=== PATIENT | female | born 2000 | race Caucasian/White ===

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

== ENCOUNTER 2019-03-28 00:14 | Emergency (ER) | payer OTHER ==
--- NOTE | 2019-03-28 02:24 | ED ---
Lower Extremity - HPI Summary HPI Summary: This pt is a 18 Y/O F presenting to [facility] with a CC of L ankle pain that started [facility] to [facility] [place] and is currently rated an 8/10 in severity. She states that she did not sleep well 03/26/19 and was overly tired 03/27/19 when she tripped over a curb. She states that she continued to walk on it for the rest of the day. When she tried walking again at 0026 she states that she was unable to put weight on her foot. She arrived to the hospital carried by her friends. She states that her L foot is swollen and discolored. She has decreased ROM and increased pain with movement. She states that elevating and resting her ankle helps with the pain. She has no pertinent PMHx. - History of Current Complaint Chief Complaint: EDExtremityLower Stated Complaint: LEFT FOOT PAIN PER PT Hx Obtained From: Patient Mechanism Of Injury: Other - Pt stated that she tripped over a curb Onset of Pain: Hours - 2, Post Accident Onset/Duration: Still Present - 2 Severity Initially: Severe Severity Currently: Severe Pain Intensity: 8 Pain Scale Used: 0-10 Numeric Timing: Constant Location: Is Diffuse - L foot Associated Signs And Symptoms: Positive: Negative - chills, N/V, and abdominal pain, Bruising, Other - L foot pain. Negative: Fever Aggravating Factor(s): Movement, Weight Bearing Alleviating Factor(s): Rest, Elevation Able to Bear Weight: No - Allergies/Home Medications Allergies/Adverse Reactions: Allergies Allergy/AdvReac Type Severity Reaction Status Date / Time No Known Allergies Allergy Verified 06/04/17 10:02 PMH/Surg Hx/FS Hx/Imm Hx Previously Healthy: Yes Endocrine/Hematology History: Denies: Hx Diabetes Cardiovascular History: Denies: Hx Hypertension Respiratory History: Reports: Hx Asthma Neurological History: Reports: Hx Migraine Infectious Disease History: No Infectious Disease History: Denies: Traveled Outside the [place] in Last 30 Days - Family History Known Family History: Positive: Cardiac Disease - Social History Occupation: Student - [employer] Lives: Dormitory/Roommates Alcohol Use: None Hx Substance Use: No Substance Use Type: Reports: None Hx Tobacco Use: No Smoking Status (MU): Never Smoked Tobacco Review of Systems Negative: Fever, Chills Negative: Abdominal Pain, Vomiting, Nausea Positive: Decreased ROM - L foot and ankle, Other - L foot pain Skin: Other - discolored at L foot All Other Systems Reviewed And Are Negative: Yes Physical Exam - Summary Physical Exam Summary: General: Well-developed, Well-nourished female. No acute distress. HEENT: Normocephalic, Atraumatic. Eyes: Conjuctiva normal, PERRL. Ears: TMs within normal limits. Nares: (-) discharge, (-) erythema. Oropharynx: Clear, mucous membranes moist, (-) exudates. Neck: Soft, FROM, (-) lymphadenopathy, (-) thyromegaly, (-) JVD. Cardiovascular: Normal sinus rhythm, (-) murmur. Lungs: Clear to auscultation bilaterally (-) wheezes, (-) rales, (-) rhonchi. Abdomen: Soft, non-tender, non-distended, (-) organomegaly, normal bowel sounds. Back: (-) CVA tenderness Extremities: No edema. Good cap refill, pulses. No obvious swelling or deformity , L foot is tender. Decreased range of motion in L foot secondary to pain. Skin: Warm, dry, (-) rash. Temp is normal Neuro: Alert and oriented x3, no focal deficits. Psychiatric: Mood normal, affect normal. Triage Information Reviewed: Yes Vital Signs On Initial Exam: Initial Vitals Temp Pulse Resp BP Pulse Ox 99.1 F 61 18 93/61 100 03/28/19 00:25 03/28/19 00:25 03/28/19 00:25 03/28/19 00:25 03/28/19 00:25 Vital Signs Reviewed: Yes Diagnostics - Vital Signs Vital Signs Temp Pulse Resp BP Pulse Ox 03/28/19 00:25 99.1 F 61 18 93/61 100 - Laboratory Lab Statement: Any lab studies that have been ordered have been reviewed, and results considered in the medical decision making process. - Radiology L ankle Radiology Interpretation Completed By: ED Physician Summary of Radiographic Findings: No acute processes, including fractures or breaks. Pending offical review. Lower Extremity Course/Dx - Course Course Of Treatment: This pt is a 18 Y/O F presenting to [facility] with a CC of L ankle pain that started [facility] [facility] to [facility] [place] and is currently rated an 8/10 in severity. She states that she did not sleep well 03/26/19 and was overly tired 03/27/19 when she tripped over a curb. She states that she continued to walk on it for the rest of the day. When she tried walking again at 0026 she states that she was unable to put weight on her foot. Her PE found that she had Good cap refill, pulses. No obvious swelling or deformity, L foot is tender. Decreased range of motion in L foot secondary to pain, and she had a normal temperature. Her Ankle X-Ray found no acute injuries, including fractures or breaks. She will be discahrged home with a Dx of L ankle sprain. She will be given instructions to rest, elevate, ice, weight bearing as tolerated, Ibuprofen 2 tabs 3 times a day as needed with food. Use the crutches as shown. - Diagnoses Provider Diagnoses: Left ankle sprain Discharge ED - Sign-Out/Discharge Documenting (check all that apply): Patient Departure - discharge Patient Received Moderate/Deep Sedation with Procedure: No - Discharge Plan Condition: Stable Disposition: HOME Patient Education Materials: Ankle Sprain (ED), Crutch Instructions (ED), R.I.C.E. Treatment (ED) Referrals: [facility] - Hector WANG [Primary Care Provider] - 2 Days Additional Instructions: PLEASE FOLLOW UP WITH YOUR PRIMARY CARE PROVIDER IN 2-3 DAYS AND RETURN TO THE EMERGENCY DEPARTMENT FOR ANY NEW OR WORSENING SYMPTOMS. - Billing Disposition and Condition Condition: STABLE Disposition: Home - Attestation Statements Document Initiated by Verónica: Yes Documenting Scribe: Scooter Biswas Provider For Whom Verónica is Documenting (Include Credential): Sasha Vega MD Scribe Attestation: Scooter Rivera, scribed for Sasha Vega MD on 03/28/19 at 0509. Scribe Documentation Reviewed: Yes Provider Attestation: The documentation as recorded by the Scooter spears accurately reflects the service I personally performed and the decisions made by me, Sasha Vega MD Status of Scribe Document: Viewed
[2019-03-28 02:59] VITALS: BP 0/0
== END 2019-03-28 02:55 | disposition home or self-care (01) ==
LOC: ED 00:14
DX: S93.402A Sprain of unspecified ligament of left ankle, initial encounter (principal); W18.49XA Other slipping, tripping and stumbling without falling, initial encounter; Y92.9 Unspecified place or not applicable; J45.909 Unspecified asthma, uncomplicated; G43.909 Migraine, unspecified, not intractable, without status migrainosus
CPT/HCPCS: 99282

== ENCOUNTER 2019-05-29 14:56 | Emergency (ER) | payer OTHER, BC ==
[2019-05-29] MEDS ORDERED: Acetaminophen TAB* 325 MG PO ONE (15:07)
[2019-05-29 15:50] LABS: Influenza A Molecular NEGATIVE (Negative); Influenza B Molecular NEGATIVE (Negative)
[2019-05-29] MEDS ORDERED: Ondansetron INJ* 2 MG/ML VIAL IV ONE (16:27)
[2019-05-29 16:54] LABS: Urine Appearance Clear; Urine Bacteria Absent (Absent); Urine Bilirubin Negative (Negative); Urine Blood 2+ (Negative); Urine Color Yellow; Urine Glucose Negative (Negative); Urine Ketones Negative (Negative); Urine Nitrite Positive (Negative); Urine Protein Negative (Negative); Urine Red Blood Cell 2+(6-10/hpf) (Absent); Urine Specific Gravity 1.012 (1.010-1.030); Urine Squamous Epithelial Cell Present (Absent); Urine Urobilinogen Negative (Negative); Urine White Blood Cell 3+(>20/hpf) (Absent)
--- NOTE | 2019-05-29 16:55 | ED ---
Influenza-Like Illness - HPI Summary HPI Summary: This patient is a 18-year-old female presenting to the ED with body aches, shortness of breath and fevers, sweats, chills 2 days. She is also endorsing some urinary frequency. She is currently on her menses. Denies chance of . Patient has been taking Tylenol with good relief, however it then her fever continues. She denies cough or congestion. Denies any maxillary sinus tenderness, rhinorrhea, ear pain, eye pain, dysphasia or odynophagia. Denies any headache. She has been nauseous, however has not been having any emesis. Denies any constipation or diarrhea. Patient endorses some decreased by mouth intake. Denies health problems. Denies neck stiffness, photophobia, back pain, gross hematuria. Denies recent travel and smoking history. - History of Current Complaint Chief Complaint: EDFluSymptoms Time Seen by Provider: 05/29/19 16:09 Hx Obtained From: Patient Onset/Duration: Sudden Onset Severity: Moderate Associated Signs & Symptoms: Fever - 102, T Max, F/C, Myalgia - Risk Factors Influenza Risk Factors: Negative - Allergy/Home Medications Allergies/Adverse Reactions: Allergies Allergy/AdvReac Type Severity Reaction Status Date / Time No Known Allergies Allergy Verified 05/29/19 15:00 Home Medications: Home Medications Cholecalciferol TAB* [Vitamin D TAB*] 1,000 unit PO DAILY 05/29/19 [History Confirmed 05/29/19] Cyanocobalamin (Vitamin B-12) [Vitamin B-12] 1,000 mcg PO DAILY 05/29/19 [ History Confirmed 05/29/19] Doxycycline Hyclate 100 mg PO BID 05/29/19 [History Confirmed 05/29/19] PMH/Surg Hx/FS Hx/Imm Hx Previously Healthy: Yes Endocrine/Hematology History: Denies: Hx Diabetes Cardiovascular History: Denies: Hx Hypertension Respiratory History: Reports: Hx Asthma Neurological History: Reports: Hx Migraine - Immunization History Hx Pertussis Vaccination: No Immunizations Up to Date: Yes Infectious Disease History: No Infectious Disease History: Denies: Traveled Outside the [place] in Last 30 Days - Family History Known Family History: Positive: Cardiac Disease - Social History Occupation: Unemployed, Student Lives: With Family Alcohol Use: None Hx Substance Use: No Substance Use Type: Reports: None Hx Tobacco Use: No Smoking Status (MU): Never Smoked Tobacco Review of Systems Positive: Fever, Chills, Fatigue, Skin Diaphoresis Negative: Blurred Vision, Diplopia Negative: Dental Pain, Sore Throat Negative: Palpitations, Chest Pain Positive: Shortness Of Breath. Negative: Cough Positive: Nausea. Negative: Abdominal Pain, Vomiting, Diarrhea Positive: dysuria Positive: Myalgia. Negative: Arthralgia Skin: Negative Neurological: Negative All Other Systems Reviewed And Are Negative: Yes Physical Exam Triage Information Reviewed: Yes Vital Signs On Initial Exam: Initial Vitals Temp Pulse Resp BP Pulse Ox 102.3 F 105 18 118/75 98 05/29/19 15:00 05/29/19 15:00 05/29/19 15:00 05/29/19 15:00 05/29/19 15:00 Vital Signs Reviewed: Yes Appearance: Positive: Ill-Appearing Skin: Positive: Skin Color Reflects Adequate Perfusion, Diaphoretic Head/Face: Positive: Normal Head/Face Inspection Eyes: Positive: EOMI, SUZI, Conjunctiva Clear Neck: Positive: Supple, Nontender, No Lymphadenopathy Respiratory/Lung Sounds: Positive: Clear to Auscultation, Breath Sounds Present Cardiovascular: Positive: RRR, Pulses are Symmetrical in both Upper and Lower Extremities. Negative: Leg Edema Left, Leg Edema Right Abdomen Description: Positive: Nontender, No Organomegaly, Soft. Negative: CVA Tenderness (R), CVA Tenderness (L), Peritoneal Signs Bowel Sounds: Positive: Present Musculoskeletal: Positive: Normal, Strength/ROM Intact, Other - Negative Kernig' s, negative Brudzinski's Neurological: Positive: Sensory/Motor Intact, Alert, Oriented to Person Place, Time, Normal Gait, Speech Normal. Negative: Disoriented Psychiatric: Positive: Normal, Affect/Mood Appropriate Procedures - Sedation Patient Received Moderate/Deep Sedation with Procedure: No Diagnostics - Vital Signs Vital Signs Temp Pulse Resp BP Pulse Ox 05/29/19 15:44 100.0 F 05/29/19 15:00 102.3 F 105 18 118/75 98 - Laboratory Lab Results: Lab Results 05/29/19 Range/Units 15:05 Influenza A (Rapid) Negative (Negative) Influenza B (Rapid) Negative (Negative) Lab Statement: Any lab studies that have been ordered have been reviewed, and results considered in the medical decision making process. Re-Evaluation - Re-Evaluation First Eval Change: Improved - improved following tylenol, fluids and zofran Flu Symptom Course/Dx - Course Course Of Treatment: On arrival into the ED, the patient appears diaphoretic. She appears fatigued as well. Denies headache, no cervical LAD bilaterally, no pharyngeal erythema. TMs clear without erythema bilaterally. EOMI/PERRLA, no conjunctival injection. No rhinorrhea noted. Lungs CTA. RRR. No abdominal tenderness throughout. No suprapubic tenderness. Patient has full range of motion and strength in the bilateral upper and lower extremity's. Ambulating well. Negative Kernig's. Negative Brudzinski's. CXR: negative for any acute findings. Influenza: Negative. Tylenol given with good relief, pt temp reduced to 100.0 from 102. Pt given lactated ringers and zofran also with good relief. Pt is PERC score negative. Low risk for meningitis as pt has no meningeal sxs. UA positive for UTI. Given symptoms, will dx with viral syndrome and UTI and encouraged tylenol and ibuprofen as well as plenty of fluids. Encouraged to return to the ED for any changing symptoms. - Diagnoses Differential Diagnosis/HQI/PQRI: Positive: Bronchitis, Influenza, Pneumonia, Upper Respiratory Infection Provider Diagnoses: Viral syndrome, UTI (urinary tract infection) Discharge ED - Sign-Out/Discharge Documenting (check all that apply): Patient Departure - Discharge Plan Condition: Stable Disposition: HOME Prescriptions: Cephalexin CAP* [Keflex CAP*] 500 mg PO TID #21 cap MDD 3 Ondansetron ODT TAB* [Zofran 4 MG Odt TAB*] 4 mg PO Q6H PRN #12 tab.odt MDD 4 PRN Reason: Nausea Phenazopyridine TAB* [Pyridium 100 mg TAB*] 100 mg PO TID #12 tab Patient Education Materials: Urinary Tract Infection in Women (ED), Viral Syndrome (ED) Forms: *School Release Referrals: [facility] - Hector WANG [Primary Care Provider] - Additional Instructions: Follow up with [facility] Please drink plenty of fluids including gatorade and other elecrtolyte replacement fluids You likely have a viral illness which takes a few days to improve Tylelnol 650mg three times daily Ibuprofen 600mg three times daily Take these intermittently every 3- hours while awake Rest as much as possible and do not go to class tomorrow Humidifier in the home may help Chicken noodle soup and other salty foods are helpful Keflex three times daily x 7 days - Billing Disposition and Condition Condition: STABLE Disposition: Home - Attestation Statements Provider Attestation: pt seen by midlevel provider independently, based on their assessment, it was not necessary to present the case to me but I was available for consultation. I did not form a physician-patient relationship with the patient. The chart however, has been reviewed. am signing this note strictly in an administrative capacity.
[2019-05-29] MEDS ORDERED: Lactated Ringers 1000 ML Bag* 1,000 ML IV SCH (17:00)
[2019-05-29 17:50] VITALS: BP 100/60
== END 2019-05-29 17:50 | disposition home or self-care (01) ==
LOC: ED 14:56
DX: B34.9 Viral infection, unspecified (principal); N39.0 Urinary tract infection, site not specified; J45.909 Unspecified asthma, uncomplicated; Z79.899 Other long term (current) drug therapy
CPT/HCPCS: 71046; 81003; 81015; 87077; 87086; 87186; 96361; 96374; 99283; A9270-GY; J2405

== ENCOUNTER 2019-06-07 00:37 | Emergency (ER) | payer OTHER, BC ==
[2019-06-07 03:33] LABS: Urine Appearance Cloudy; Urine Color Yellow
[2019-06-07 03:34] LABS: Urine Bacteria Absent (Absent); Urine Red Blood Cell 3+(>10/hpf) (Absent); Urine Squamous Epithelial Cell Present (Absent); Urine White Blood Cell 3+(>20/hpf) (Absent)
[2019-06-07 03:38] LABS: Urine Blood 2+ (Negative); Urine Ketones Negative (Negative); Urine Protein 1+(30 mg/dL) (Negative); Urine Specific Gravity 1.025 (1.010-1.030); Urine Urobilinogen 0 (Negative)
[2019-06-07 03:39] LABS: Urine Bilirubin Negative (Negative); Urine Glucose Negative (Negative); Urine Nitrite Negative (Negative)
[2019-06-07 03:46] LABS: ABS Eosinophils 0.1 10^3/ul (0-0.6); ABS Monocytes 0.6 10^3/ul (0-0.8); ABS Neutrophils 3.6 10^3/ul (1.5-7.7); Eosinophil % 1.5 %; Hematocrit 35 % (35-47); Hemoglobin 12.2 g/dL (12.0-16.0); Lymphocyte % 41.2 %; Mean Corpuscular HGB Conc 35 g/dL (31-36); Mean Corpuscular Hemoglobin 31 pg (27-31); Mean Corpuscular Volume 90 fL (80-97); Mean Platelet Volume 7.3 fL (7.4-10.4); Nucleated Red Blood Cells % 0.1; Platelet Count 325 10^3/uL (150-450); Red Cell Distribution Width 13 % (10-15); White Blood Count 7.3 10^3/uL (3.5-10.8)
--- NOTE | 2019-06-07 03:46 | ED ---
GI/ HPI - HPI Summary HPI Summary: This pt is a 18 Y/O F presenting to [facility] with a CC of urinary symptoms. She states that she was in the ED last weekend and diagnosed with a UTI and a viral infection which was cleared up. She also states that she had an irregular period after 7 days from her last period that was very heavy. She states that she has urinary symptoms that mirrored her symptoms last week which include N/V , abdominal pain, low back pain, dysuria, increased urgency and frequency. She states that she was taking Keflex with a 7 day course last time she was present in the ED. She states that her pain is currently a 5/10 in severity. She denies any edema. She states that she has been having a regular period for the last 3- 4 months after not having a period for 4 years due to her weight. She states that she has no aggravating or alleviating factors. - History of Current Complaint Chief Complaint: EDUrogenitalProblems Time Seen by Provider: 06/07/19 03:36 Stated Complaint: POSS UTI PER PT Hx Obtained From: Patient Onset/Duration: Started Days Ago, Still Present Timing: Constant Severity: Moderate Current Severity: Moderate Pain Intensity: 5 Location of Pain: Flank Pain Radiates to: Back Associated Signs and Symptoms: Positive: Nausea, Vomiting, Discharge, Dysuria, Flank Pain, Chills, UTI Symptoms Aggravating Factor(s): Nothing Alleviating Factor(s): Nothing - Allergy/Home Medications Allergies/Adverse Reactions: Allergies Allergy/AdvReac Type Severity Reaction Status Date / Time No Known Allergies Allergy Verified 05/29/19 15:00 PMH/Surg Hx/FS Hx/Imm Hx Previously Healthy: Yes Endocrine/Hematology History: Denies: Hx Diabetes Cardiovascular History: Denies: Hx Hypertension Respiratory History: Reports: Hx Asthma Neurological History: Reports: Hx Migraine - Surgical History Surgical History: None - Immunization History Immunizations Up to Date: Yes Infectious Disease History: No Infectious Disease History: Denies: Traveled Outside the [place] in Last 30 Days - Family History Known Family History: Positive: Cardiac Disease - Social History Occupation: Student - [employer] Lives: Dormitory/Roommates Alcohol Use: None Hx Substance Use: No Substance Use Type: Reports: None Hx Tobacco Use: No Smoking Status (MU): Never Smoked Tobacco Household Exposure: No Review of Systems Positive: Chills Positive: Abdominal Pain, Vomiting, Nausea Positive: dysuria, frequency, urgency Positive: Myalgia - Low back pain All Other Systems Reviewed And Are Negative: Yes Physical Exam - Summary Physical Exam Summary: Appearance: Well-appearing, Well-nourished, lying in bed comfortably Skin: Warm, dry, no obvious rash Eyes: sclera anicteric, no conjunctival pallor ENT: mucous membranes moist, pharynx appears normal Neck: Supple, nontender Respiratory: Clear to auscultation, no signs of respiratory distress Cardiovascular: Normal S1, S2. No murmurs. Normal distal pulses in tibial and radial bilaterally. Abdomen: Soft, lower abdominal tenderness, normal active bowel sounds present Musculoskeletal: Normal, Strength/ROM Intact Neurological: A&Ox3, awake and alert, mentation is normal, speech is fluent and appropriate Psychiatric: affect is normal, does not appear anxious or depressed Triage Information Reviewed: Yes Vital Signs On Initial Exam: Initial Vitals Temp Pulse Resp BP Pulse Ox 96.1 F 62 18 114/73 98 06/07/19 00:41 06/07/19 00:41 06/07/19 00:41 06/07/19 00:41 06/07/19 00:41 Vital Signs Reviewed: Yes Procedures - Sedation Patient Received Moderate/Deep Sedation with Procedure: No Diagnostics - Vital Signs Vital Signs Temp Pulse Resp BP Pulse Ox 06/07/19 00:41 96.1 F 62 18 114/73 98 - Laboratory Lab Results: Lab Results 06/07/19 Range/Units 03:16 Urine Color Yellow Urine Appearance Cloudy Urine pH 6 (5-9) Ur Specific [place] 1.025 (1.010-1.030) Urine Protein 1+(30 mg/dl) A (Negative) Urine Ketones Negative (Negative) Urine Blood 2+ A (Negative) Urine Nitrate Negative (Negative) Urine Bilirubin Negative (Negative) Urine Urobilinogen 0 (Negative) Ur Leukocyte Esterase 2+ A (Negative) Urine WBC (Auto) 3+(>20/hpf) A (Absent) Urine RBC (Auto) 3+(>10/hpf) A (Absent) Ur Squamous Epith Cells Present A (Absent) Urine Bacteria Absent (Absent) Urine Glucose Negative (Negative) Urine Ascorbic Acid Not Reportable Result Diagrams: 06/07/19 03:33 06/07/19 03:33 Lab Statement: Any lab studies that have been ordered have been reviewed, and results considered in the medical decision making process. GIGU Course/Dx - Course Course Of Treatment: This pt is a 18 Y/O F presenting to [facility] with a CC of urinary symptoms. She states that she was in the ED last weekend and diagnosed with a UTI and a viral infection which was cleared up. She also states that she had an irregular period after 7 days from her last period that was very heavy. She states that she has urinary symptoms that mirrored her symptoms last week which include N/V, abdominal pain, low back pain, dysuria, increased urgency and frequency. Her PE found that she has lower abdominal tenderness. Her urinary labratory results are consistent with a UTI. She will be discharged home with a Dx of a UTI. - Diagnoses Provider Diagnoses: UTI (urinary tract infection) Discharge ED - Sign-Out/Discharge Documenting (check all that apply): Patient Departure - discharge - Discharge Plan Condition: Good Disposition: HOME Prescriptions: Nitrofurantoin Macrocrystals* [Macrodantin 100 mg*] 100 mg PO BID #20 cap Patient Education Materials: Urinary Tract Infection in Women (ED) Forms: *School Release Referrals: [facility] [Outside] No Primary Care Phys,NOPCP [Primary Care Provider] - Additional Instructions: I am putting you on a different antibiotic that should be effective, but will be prescribing it for 10 days. I think you should have another urine specimen taken when the antibiotic finishes to make sure the infection is cleared. The urine specimen we took today will be cultured by our lab, results will be available likely Sunday and we will call if a change in your medication is needed. - Billing Disposition and Condition Condition: GOOD Disposition: Home - Attestation Statements Document Initiated by Verónica: Yes Documenting Scribe: Scooter Biswas Provider For Whom Verónica is Documenting (Include Credential): Bhargav Iyer MD Scribe Attestation: IScooter, albinaed for Bhargav Iyer MD on 06/07/19 at 2120. Scribe Documentation Reviewed: Yes Provider Attestation: The documentation as recorded by the Scooter spears accurately reflects the service I personally performed and the decisions made by me, Bhargav Iyer MD Status of Scribe Document: Viewed
[2019-06-07 04:01] LABS: ALT 18 U/L (7-52); AST 19 U/L (13-39); Albumin 3.7 g/dL (3.2-5.2); Albumin/Globulin Ratio 1.2 (1-3); Alkaline Phosphatase 47 U/L (34-104); Anion Gap 4 mmol/L (2-11); BUN/Creatinine Ratio 24.3 (8-20); Blood Urea Nitrogen 18 mg/dL (6-24); CO2 Carbon Dioxide 28 mmol/L (22-32); Calcium 8.9 mg/dL (8.6-10.3); Chloride 108 mmol/L (101-111); EGFR African American 121.1 (>60); EGFR Non-African American 100.1 (>60); Glucose 82 mg/dL (70-100); Potassium 3.5 mmol/L (3.5-5.0); Sodium 140 mmol/L (135-145); Total Protein 6.7 g/dL (6.4-8.9)
[2019-06-07 04:08] LABS: HCG Pregnancy < 0.60 mIU/mL
[2019-06-07] MEDS ORDERED: Nitrofurantoin Macrocrystals* 100 MG CAP PO ONE (05:07)
[2019-06-07 06:48] VITALS: BP 105/58
== END 2019-06-07 06:47 | disposition home or self-care (01) ==
LOC: ED 00:37
DX: N39.0 Urinary tract infection, site not specified (principal); R11.2 Nausea with vomiting, unspecified; M54.5 Low back pain
CPT/HCPCS: 36415; 80053; 81003; 81015; 84702; 85025; 87077; 87086; 87186; 99284; A9270-GY

== ENCOUNTER 2019-06-17 07:05 | Emergency (ER) | payer OTHER, BC ==
[2019-06-17 07:18] VITALS: BP 112/70
--- NOTE | 2019-06-17 08:11 | UC ---
Complaint Female HPI - HPI Summary HPI Summary: WOKE UP 2 AM WITH LOWER ABDOMINAL PAIN, URINARY FREQUENCY, URGENCY AND DYSURIA. WAS TREATED FOR UTI 05/29/19 WITH KEFLEX AND 06/08/19 WITH MACROBID. BOTH TIMES SHE STATES HER SYMPTOMS RESOLVED. LAST URINE CULTURE POSITIVE FOR ESBL E. COLI. PATIENT IS IN A MONOGAMOUS RELATIONSHIP WITH A MALE PARTNER AND JUST BECAME SEXUALLY ACTIVE ABOUT 2 MONTHS AGO. USES CONDOMS AND TAKES OCP RELIABLY. - History Of Current Complaint Stated Complaint: burning urination Time Seen by Provider: 06/17/19 07:13 Hx Obtained From: Patient Hx Last Menstrual Period: 05/23/19 Onset/Duration: Sudden Onset, Lasting Hours, Still Present Timing: Constant Severity Initially: Moderate Severity Currently: Moderate Pain Intensity: 6 Pain Scale Used: 0-10 Numeric Character: Burning Aggravating Factor(s): Onsted, Urination Alleviating Factor(s): Nothing Associated Signs And Symptoms: Positive: Nausea. Negative: Fever, Back Pain, Vaginal Bleeding/Discharge, Vomiting(# Of Episodes =) - Allergies/Home Medications Allergies/Adverse Reactions: Allergies Allergy/AdvReac Type Severity Reaction Status Date / Time No Known Allergies Allergy Verified 06/17/19 07:18 Home Medications: Home Medications Control 1 tab PO DAILY 06/17/19 [History Confirmed 06/17/19] PMH/Surg Hx/FS Hx/Imm Hx Respiratory History: Asthma - Surgical History Surgical History: Yes Surgery Procedure, Year, and Place: cyst in throat as a child - Family History Known Family History: Positive: Cardiac Disease - Social History Alcohol Use: None Substance Use Type: None Smoking Status (MU): Never Smoked Tobacco Review of Systems All Other Systems Reviewed And Are Negative: Yes Constitutional: Positive: Negative Respiratory: Positive: Negative Cardiovascular: Positive: Negative Gastrointestinal: Positive: Nausea Genitourinary: Positive: Dysuria, Frequency, Urgency Physical Exam Triage Information Reviewed: Yes Appearance: Well-Appearing, No Pain Distress, Well-Nourished Vital Signs: Initial Vital Signs Temp 98.4 F 06/17/19 07:13 Pulse 76 06/17/19 07:13 Resp 16 06/17/19 07:13 BP 112/70 06/17/19 07:13 Pulse Ox 99 06/17/19 07:13 Laboratory Tests 06/17/19 08:20 POC Urine Color Yellow POC Urine Clarity Cloudy POC Urine pH 7.0 POC Ur Specif [place] 1.020 POC Urine Protein 1+ A POC Ur Glucose (UA) Negative POC Urine Ketones Negative POC Urine Blood 1+ A POC Urine Nitrite Negative POC Urine Bilirubin Negative POC Urine Urobilinogen 0.2 POC U Leukocyte Esteras 1+ A Vital Signs Reviewed: Yes Eyes: Positive: Conjunctiva Clear ENT: Positive: Hearing grossly normal Neck: Positive: Supple Respiratory: Positive: No respiratory distress, No accessory muscle use Cardiovascular: Positive: Pulses Normal Abdomen Description: Positive: Other: - suprapubic tenderness. Negative: CVA Tenderness (R), CVA Tenderness (L), Distended, Guarding Musculoskeletal: Positive: No Edema Neurological: Positive: Alert Psychological: Positive: Age Appropriate Behavior Skin: Negative: Rashes Complaint Female Dx - Course Course Of Treatment: THIS IS PATIENT'S THIRD UTI THIS MONTH. LIKELY DUE TO RECENT SEXUAL ACTIVITY. GIVEN HER LAST URINE CULTURE WAS POSITIVE FOR ESBL ESCHERICHIA COLI HAVE RECOMMENDED SHE FOLLOW-UP WITH DR. CARRIZALES WITH INFECTIOUS DISEASES. ADVISED TO TAKE A PROBIOTIC DAILY AND TO ABSTAIN FROM SEXUAL INTERCOURSE FOR SEVERAL WEEKS. PRESCRIPTION FOR CIPRO. BLACK BOX WARNINGS DISCUSSED. PATIENT IS EXTREMELY SENSITIVE TO ANTIBIOTICS SO PREFERS NOT TO TAKE AUGMENTIN. SHE WAS RECENTLY TREATED WITH BOTH MACROBID AND KEFLEX SO WOULD PREFER AN ALTERNATE ANTIBIOTIC. ESBL ESCHERICHIA COLI CULTURE RESISTANT TO BACTRIM AND TETRACYCLINES. - Differential Dx/Diagnosis Provider Diagnosis: UTI (urinary tract infection) Discharge ED - Sign-Out/Discharge Documenting (check all that apply): Patient Departure All imaging exams completed and their final reports reviewed: No Studies - Discharge Plan Condition: Stable Disposition: HOME Prescriptions: Ciprofloxacin TAB* [Cipro 500 MG TAB*] 500 mg PO BID #20 tab Phenazopyridine TAB* [Pyridium TAB*] 200 mg PO TID #6 tab Patient Education Materials: Urinary Tract Infection in Women (ED) Forms: *Gen. Provider Communication Referrals: Eron HALL,Walt Baker [Medical Doctor] - 2 Weeks Additional Instructions: TAKE THE CIPRO TWICE DAILY FOR THE FULL COURSE. STAY WELL HYDRATED. YOUR URINE HAS BEEN SENT FOR CULTURE AND WE WILL CALL YOU IF YOUR MEDICATION NEEDS TO BE CHANGED. GIVEN YOUR LAST CULTURE RESULT OF ESBL ESCHERICHIA COLI I RECOMMEND YOU FOLLOW-UP WITH AN INFECTIOUS DISEASE SPECIALIST. I ALSO RECOMMEND ABSTAINING FROM SEXUAL INTERCOURSE FOR A FEW WEEKS THIS MAY BE THE REASON YOU'RE HAVING SUCH FREQUENT UTI SYMPTOMS. EAT YOGURT AND TAKE A DAILY PROBIOTIC. - Billing Disposition and Condition Condition: STABLE Disposition: Home
--- NOTE | 2019-06-19 07:55 | UC ---
- Progress Note Progress Note: + UTI e. Coli Pt on cipro await sensitivity Course/Dx - Diagnoses Provider Diagnoses: UTI (urinary tract infection) Discharge ED - Sign-Out/Discharge Documenting (check all that apply): Post-Discharge Follow Up All imaging exams completed and their final reports reviewed: No Studies - Discharge Plan Condition: Stable Disposition: HOME Prescriptions: Ciprofloxacin TAB* [Cipro 500 MG TAB*] 500 mg PO BID #20 tab Phenazopyridine TAB* [Pyridium TAB*] 200 mg PO TID #6 tab Patient Education Materials: Urinary Tract Infection in Women (ED) Forms: *Gen. Provider Communication Referrals: Eron HALL,Walt Baker [Medical Doctor] - 2 Weeks Additional Instructions: TAKE THE CIPRO TWICE DAILY FOR THE FULL COURSE. STAY WELL HYDRATED. YOUR URINE HAS BEEN SENT FOR CULTURE AND WE WILL CALL YOU IF YOUR MEDICATION NEEDS TO BE CHANGED. GIVEN YOUR LAST CULTURE RESULT OF ESBL ESCHERICHIA COLI I RECOMMEND YOU FOLLOW-UP WITH AN INFECTIOUS DISEASE SPECIALIST. I ALSO RECOMMEND ABSTAINING FROM SEXUAL INTERCOURSE FOR A FEW WEEKS THIS MAY BE THE REASON YOU'RE HAVING SUCH FREQUENT UTI SYMPTOMS. EAT YOGURT AND TAKE A DAILY PROBIOTIC. - Billing Disposition and Condition Condition: STABLE Disposition: Home
== END 2019-06-17 08:35 | disposition home or self-care (01) ==
LOC: UCEAST 07:05
DX: N39.0 Urinary tract infection, site not specified (principal); J45.909 Unspecified asthma, uncomplicated
CPT/HCPCS: 81003; 87077; 87086; 87186; 99212; G0463

== ENCOUNTER 2019-07-03 21:55 | Emergency (ER) | payer BC, OTHER ==
--- OUTSIDE RECORDS SUMMARY | 2019-07-03 22:00 | XMS REPORT | Continuity of Care Document ---
:2000 External Reference #:[id number] Author Name Shayne Cole MD (transmitted by agent of provider Sherry Pyle) Address [address] [place] [id number] Problems Description No Information Available Social History Type Date Description Comments Sex Unknown Tobacco Use Start: Unknown Patient has never smoked Smoking Status Reviewed: 06/27/19 Patient has never smoked Exercise Type/Frequency Exercises regularly Allergies, Adverse Reactions, Alerts Description No Known Drug Allergies Medications Active Medications SIG Qnty Indications Ordering Provider Date Cipro take one tab Unknown 250mg Tablets twice a day for three days Gas-X Extra Strength as needed Unknown 125mg Capsules Immunizations Description No Information Available Vital Signs Date Vital Result Comment 06/27/2019 8:08am Height 62 inches 5'2" Weight 100.25 lb Heart Rate 78 /min BP Systolic 107 mmHg BP Diastolic 71 mmHg O2 % BldC Oximetry 100 % BMI (Body Mass Index) 18.3 kg/m2 Last Menstrual Period [id number] Results Test Acquired Date Facility Test Result H/L Range Note Laboratory test 06/27/2019 [facility] [place]/Y <pending> finding [address]: [place] [address] Dna [phone] Procedures Description No Information Available Medical Devices Description No Information Available Encounters Description No Information Available Assessments Date Code Description Provider 06/27/2019 N92.6 Irregular menstruation, unspecified Shayne Cole MD 06/27/2019 N94.6 Dysmenorrhea, unspecified Shayne Coel MD 06/27/2019 Z87.440 Personal history of urinary (tract) infections Shayne Cole MD Plan of Treatment Future Appointment(s):08/11/2019 1:00 pm - Shayne Cole MD at [email or web address]07/01/2019 8:30 am - Walt Machuca M.D. at [facility]33/09/2019 3:30 pm - Shayne [facility] MD at [facility] [place]/06/2019 - Shayne Cole MDN92.6 Irregular menstruation, unspecifiedFollow up:Appt with or after the bcjrxomqG04.6 Dysmenorrhea, fdidnqoqbpuS81.440 Personal history of urinary (tract) infectionsComments:Has appts scheduled with and . Consider post coital prophylaxis Functional Status Description No Information Available Mental Status Description No Information Available Referrals Description No Information Available
--- OUTSIDE RECORDS SUMMARY | 2019-07-03 22:00 | XMS REPORT | Continuity of Care Document ---
:2000 External Reference #:[id number] Author Name Walt Machuca M.D. (transmitted by agent of provider Cristy Mcgee ) Address [address] [place] [id number] Problems Description No Information Available Social History Type Date Description Comments Sex Unknown Tobacco Use Start: Unknown Never Smoked Cigarettes Smoking Status Reviewed: 07/01/19 Never Smoked Cigarettes Tobacco Use Start: Unknown Patient has never smoked Exercise Type/Frequency Exercises regularly 1 hour 3x/week Allergies, Adverse Reactions, Alerts Description No Known Drug Allergies Medications Active Medications SIG Qnty Indications Ordering Provider Date Gas-X Extra Strength as needed Unknown 125mg Capsules Drospirenone-Ethinyl 1 by mouth every Unknown Estradiol day 3-0.02mg Tablets Immunizations Description No Information Available Vital Signs Date Vital Result Comment 07/01/2019 8:25am Height 62 inches 5'2" Weight 100.50 lb Heart Rate 72 /min BP Systolic Sitting 100 mmHg BP Diastolic Sitting 64 mmHg Respiratory Rate 14 /min Body Temperature 98.7 F BMI (Body Mass Index) 18.4 kg/m2 06/27/2019 8:08am Height 62 inches 5'2" Weight 100.25 lb Heart Rate 78 /min BP Systolic 107 mmHg BP Diastolic 71 mmHg O2 % BldC Oximetry 100 % BMI (Body Mass Index) 18.3 kg/m2 Last Menstrual Period [id number] Results Test Acquired Date Facility Test Result H/L Range Note Laboratory test 06/27/2019 [facility] HCG < 0.[address] mIU/mL [place], [place] [id number] [phone] TSH (Thyroid Stim Horm) 0.50 mcIU/mL Normal 0.34-5.60 Prolactin 7.0 ng/mL Normal 1.0-25.0 Laboratory test 06/27/2019 [facility] Gardnerella/Yeast: SEE RESULT [address] [place] [address] [phone] GC/Chlamydia 06/27/2019 [facility] GCC Disclaimer (SEE NOTE) 3 Amplified Rna [address] [place] [address] [phone] Chlamydia trachomatis Nette Negative Negative Neisseria gonorrhoeae (GC) Nette Negative Negative Laboratory test 06/27/2019 [facility] Trichomonas Negative Negative [address] [place] [address] [phone] 1 <5.0 Negative 5.0 - 25.0 Indeterminate (Repeat testing recommended after 72 hours) >25.0 Positive Perimenopausal women can display HCG levels of up to 20 mIU/mL 2 SEE RESULT BELOW Name: [address] : [address]: Shayne Cole MD Acct: [id number] Unit: [id number] AGE: 18 Location: [facility] Re06/27/19 SEX: F Status: REG REF SPEC: [id number] ZEESHAN: 06/27/[address]: Shayne Cole MD REQ: [id number] RECD: 06/27/19 STATUS: COMP _ SOURCE: VAGINAL SPDESC: ORDERED: Daniela,Yeast DNA COMMENTS: [id number] Would you like to order Trichomonas Vaginalis testing? Yes Procedure Result Reported Site [place]/Yeast: Vaginal DNA Final 06/28/19- 0735 ML Organism 1 Negative Christin Organism 2 Negative Gard[place]rella The presence of G. vaginalis, although suggestive, is not diagnostic for bacterial vaginosis. Results should be interpreted in conjuction with other clinical and laboratory data available. Women with vaginal discharge should be evaluated for risk factors of cervicitis and pelvic inflammatory disease, toxic shock syndrome (S.aureus), and if present, evaluated for organisms not included in this assay such as N. gonorrhoeae, C. trachomatis, Mobiluncus, Mycoplasma and/or Prevotella. Mixed infections may occur. The performance of this test on patient specimens collected during or immediately after antimicrobial therapy is unknown. The presence or absence of Christin species, or G. vaginalis cannot be used as a test for therapeutic success or failure. * [facility] - Main Lab . END OF REPORT DEPARTMENT OF PATHOLOGY, [address] [place] [address] Sal Alex M.D. Director [facility] # [id number] 3 As with all diagnostic procedures, the laboratory results obtained should be used in conjunction with other clinical information available to the physician, including confirmation by another method, as applicable. 4 As with all diagnostic procedures, the laboratory results obtained should be used in conjunction with other clinical information available to the physician, including confirmation by another method, as applicable. Procedures Description No Information Available Medical Devices Description No Information Available Encounters Type Date Location Provider Dx Diagnosis Office Visit 06/27/2019 [facility] Shayne Cole MD N92.6 Irregular 8:00a [facility] menstruation, unspecified N94.6 Dysmenorrhea, unspecified Z87.440 Personal history of urinary (tract) infections Assessments Date Code Description Provider 07/01/2019 Z86.19 Personal history of other infectious and Walt Machuca M.D. parasitic diseases 07/01/2019 Z16.12 Extended spectrum beta lactamase (Esbl) Walt Machuca M.D. resistance 06/27/2019 N92.6 Irregular menstruation, unspecified Shayne Cole MD 06/27/2019 N94.6 Dysmenorrhea, unspecified Shayne Cole MD 06/27/2019 Z87.440 Personal history of urinary (tract) Shayne Cole MD infections Plan of Treatment Future Appointment(s):08/11/2019 1:00 pm - Shayne Cole MD at [facility]07/01/2019 - Walt Machuca M.D.Z86.19 Personal history of other infectious and parasitic diseasesComments:UA/culture today;given close time course I think her prior 3 episodes may have been one infection, the first course of antibiotics induced the ESBL resistance pattern, the 2nd incompletely treated and now apparently resolved. May be related to recent onset sexual activity. She sees urology tomorrow,will defer anatomic or stone work up to Dr Johnson.Z16.12 Extended spectrum beta lactamase (Esbl) resistance Functional Status Description No Information Available Mental Status Description No Information Available Referrals Description No Information Available
[2019-07-03 22:10] VITALS: BP 103/64
[2019-07-03] MEDS ORDERED: Nitrofurantoin Macrocrystals* 50 MG CAP PO ONE ×2 (22:38)
--- NOTE | 2019-07-03 22:39 | UC ---
Complaint Female HPI - HPI Summary HPI Summary: The patient is a 18-year-old female that had the onset of dysuria urgency and frequency that started hours ago. She states that she has had 3 UTIs since early May. Two of her UTIs have been esbl Escherichia coli infections. She has been seen by Dr. San. Incidentally a culture was ordered of her urine on the . She was asymptomatic at the time. Her culture has been reviewed by me and shows both Escherichia coli and strep faecalis. Both are sensitive to nitrofurantoin. She has had mild low back pain but she is also on her period. She has had no fever or chills. She denies any vomiting. Prior to the beginning of May she had never had a UTI infection in the past. She denies any history of kidney stones. - History Of Current Complaint Chief Complaint: [facility]CGU Stated Complaint: UTI Time Seen by Provider: 07/03/19 22:15 Hx Obtained From: Patient Hx Last Menstrual Period: now Onset/Duration: Sudden Onset, Lasting Hours Timing: Intermittent, Lasting Seconds Severity Initially: Moderate Severity Currently: Moderate Pain Intensity: 7 Pain Scale Used: 0-10 Numeric Character: Burning Aggravating Factor(s): Urination Associated Signs And Symptoms: Positive: Negative - Allergies/Home Medications Allergies/Adverse Reactions: Allergies Allergy/AdvReac Type Severity Reaction Status Date / Time No Known Allergies Allergy Verified 07/03/19 22:10 PMH/Surg Hx/FS Hx/Imm Hx Previously Healthy: Yes - Surgical History Surgical History: Yes Surgery Procedure, Year, and Place: cyst in throat as a child - Family History Known Family History: Positive: Cardiac Disease - Social History Alcohol Use: None Substance Use Type: None Smoking Status (MU): Never Smoked Tobacco Review of Systems All Other Systems Reviewed And Are Negative: Yes Constitutional: Positive: Negative Skin: Positive: Negative Eyes: Positive: Negative ENT: Positive: Negative Respiratory: Positive: Negative Cardiovascular: Positive: Negative Gastrointestinal: Positive: Negative Genitourinary: Positive: Dysuria, Frequency, Urgency Motor: Positive: Negative Neurovascular: Positive: Negative Musculoskeletal: Positive: Negative Neurological: Positive: Negative Psychological: Positive: Negative Physical Exam Triage Information Reviewed: Yes Appearance: Well-Appearing, No Pain Distress, Well-Nourished Vital Signs: Initial Vital Signs Temp 98.9 F 07/03/19 22:06 Pulse 65 07/03/19 22:06 Resp 18 07/03/19 22:06 BP 103/64 07/03/19 22:06 Pulse Ox 99 07/03/19 22:06 Vital Signs Reviewed: Yes Eyes: Positive: Conjunctiva Clear ENT: Positive: Hearing grossly normal. Negative: Nasal congestion, Nasal drainage, Trismus, Muffled voice, Hoarse voice Neck: Positive: Supple, Nontender, No Lymphadenopathy Respiratory: Positive: Lungs clear, Normal breath sounds, No respiratory distress, No accessory muscle use Cardiovascular: Positive: RRR, No Murmur Abdomen Description: Positive: Nontender, No Organomegaly. Negative: CVA Tenderness (R), CVA Tenderness (L) Musculoskeletal: Positive: ROM Intact, No Edema Neurological: Positive: Alert Psychological Exam: Normal Skin Exam: Normal Complaint Female Dx - Differential Dx/Diagnosis Provider Diagnosis: Acute cystitis Discharge ED - Sign-Out/Discharge Documenting (check all that apply): Patient Departure All imaging exams completed and their final reports reviewed: No Studies - Discharge Plan Condition: Stable Disposition: HOME Prescriptions: Nitrofurantoin Monohyd/M-Cryst [Macrobid 100 mg Capsule] 100 mg PO BID #14 cap Patient Education Materials: Urinary Tract Infection in Women (DC) Forms: *Gen. Provider Communication Referrals: Shalonda Littlejohn MD [Medical Doctor] - Clifford Johnson MD [Medical Doctor] - 1 Week Additional Instructions: please get rechecked if not better in 3 days because of your frequent UTIs I suggest you get see a urologist - Billing Disposition and Condition Condition: STABLE Disposition: Home
== END 2019-07-03 22:47 | disposition home or self-care (01) ==
LOC: UCEAST 21:55
DX: N30.00 Acute cystitis without hematuria (principal)
CPT/HCPCS: 81003; 84702; 87077; 87086; 87186; 99212; A9270-GY; G0463